=== PATIENT | male | born 1975 | race Caucasian/White ===

== ENCOUNTER 2020-10-22 11:22 | Outpatient (CLI) | payer OTHER, SELFPAY ==
[2020-10-22 11:39] LABS: SARS-CoV-2 RNA PCR Positive (Negative)
== END 2020-10-22 11:23 | disposition home or self-care (01) ==
DX: U07.1 COVID-19 (principal)
CPT/HCPCS: C9803; U0003; U0005

== ENCOUNTER 2020-10-27 11:57 | Outpatient (CLI) | payer OTHER, SELFPAY ==
[2020-10-27 12:11] LABS: SARS-CoV-2 Ag Negative (Negative)
== END 2020-10-27 11:58 | disposition home or self-care (01) ==
LOC: CHSLAB 11:59
DX: Z20.822 Contact with and (suspected) exposure to COVID-19 (principal)
CPT/HCPCS: 87426; C9803

== ENCOUNTER 2021-03-10 14:53 | Emergency (ER) | payer SELFPAY ==
--- NOTE | ~2021-03-10 | CT_ITS ---
EXAMINATION: CT abdomen pelvis wo con DATE: 03/10/2021 16:58 INDICATION: Right flank pain. Hematuria. TECHNIQUE: Computed tomography (CT) of the abdomen and pelvis was performed without intravenous contr ast. Automated exposure control and iterative reconstruction technique were employed. The dose-length product was 638.38 mGy-cm. COMPARISON: None. FINDINGS: The visualized portions of the lung bases demonstrate mild atelectasis. No pleural effusion . The heart size is normal. No pericardial effusion. The liver, gallbladder, spleen, pancreas, and ad renal glands are normal. There are two 1-2 mm stones in right kidney. There is a 3 mm stone in proxim al right ureter. There is mild right hydroureter. A 5 mm calcification in left kidney may be parenchy mal. There is a 3 mm stone in left kidney. There are bilateral inguinal hernias containing fat. There are no dilated loops of bowel. The appendix is normal. There are no pathologically enlarged lymph no lefty. There is no free intraperitoneal fluid. There are chronic bilateral L5 pars defects. There is 7 mm anterolisthesis of L5 on S1. There is mild thoracolumbar spondylosis. IMPRESSION: 1. 3 mm stone in proximal right ureter with mild right hydroureter. 2. Bilateral nonobstructing kidney stones. Reviewed, dictated and finalized at location A.
[2021-03-10 15:00] VITALS: BP 151/94; PULSE 85; RESP 22; O2SAT 97
[2021-03-10] MEDS: ONDANSETRON INJ 4 MG/2 ML VIAL IV PUSH (15:10)
[2021-03-10] MEDS: SODIUM CHLORIDE 0.9% IV 1,000 ML 999 ML IV CONT (15:10)
[2021-03-10] MEDS: HYDROmorphone HCL INJ (*CRX) 2 MG/ML VIAL 1 MG IV PUSH (15:15)
--- NOTE | 2021-03-10 15:22 | ED.ABDPAIN ---
HPI - Abdominal Pain General Chief Complaint: Back Pain/Injury Stated Complaint: appendasitis Time Seen by Provider: 03/10/21 14:56 Source: patient Mode of arrival: ambulatory Limitations: no limitations History of Present Illness HPI narrative: 46-year-old man with a history of hypertension comes in today complaining of right flank and back pain that started suddenly approximately an hour or 2 prior to arrival. States the pain waxed and waned and was associated with nausea and sweating. He denies vomiting, diarrhea, fever, chest pain, dysuria, hematuria or recent injury. Is no personal or family history of urolithiasis he has had no recent cough or cold symptoms MD elicited complaint: flank pain Pertinent past history: none Onset (ago): hour(s) (1) Pain Consistency: colicky Location: R flank Severity: severe Quality: cramping Radiation: none Migration to: no migration Exacerbating factors: nothing Relieving factors: nothing Associated symptoms: nausea Related Data Home Medications Medication Instructions Recorded Confirmed losartan 25 mg PO DAILY 03/10/21 03/10/21 Allergies Allergy/AdvReac Type Severity Reaction Status Date / Time No Known Allergies Allergy Verified 03/10/21 15:04 Review of Systems Review of Systems: All systems reviewed & are unremarkable except as noted in HPI and below Constitutional: Constitutional: Denies chills and Denies fever(s) ENT: Denies nasal congestion and Denies sore throat Cardiovascular: Cardiovascular: Denies chest pain and Denies radiating jaw, neck or arm pain Respiratory: Respiratory: Denies cough and Denies dyspnea Gastrointestinal: Gastrointestinal: Reports abdominal pain ( flank right), Denies diarrhea, Reports nausea and Denies vomiting Genitourinary: Genitourinary: Denies hematuria, Denies dysuria and Denies urinary frequency Musculoskeletal: Musculoskeletal: Denies back pain, Denies arthralgias and Denies joint swelling Integumentary/Breasts: Skin/Breast: Denies pruritus, Denies erythema and Denies rash Neurologic: Denies vertigo, Denies dizziness and Denies syncope Hematologic/Lymphatic: Hematologic/Lymphatic: Denies easy bleeding and Denies easy bruising Allergic/Immunologic: Allergic/Immunologic: Denies lip swelling and Denies throat swelling PMF Past Medical History Medical History (Updated 03/10/21 @ 17:28 by Javier Anderson MD) Hypertension Social History Social History (Updated 03/10/21 @ 16:10 by Javier Anderson MD) Smoking status: Never smoker Alcohol intake: never Substance use: never Living arrangements: with family Exam Const: General: healthy appearing and alert Orientation/consciousness: patient oriented x3 Limitations: no limitations Other: moderate acute distress. HENMT: Head: normal to inspection Mouth: Yes moist mucous membranes Throat: posterior oropharynx normal Eyes: Conjunctivae: conjunctivae normal Pupils: Equal, round and reactive pupils present EOM: EOMs intact bilaterally Resp: Effort & Inspection: normal respiratory effort and not labored Auscultation: clear to auscultation bilaterally, no rales, no rhonchi and no wheezes Cardio: Rate: regular rate Rhythm: regular rhythm Heart sounds: no murmurs GI: GI Palp: Yes Soft to palpation, No Tenderness to palpation present (GI), No Guarding due to palpation present (GI) and No Rigid due to palpation Skin: General skin exam: normal color, no jaundice and no pallor Rashes: no rashes Neuro: General: patient oriented x3, moves all extremities, no focal motor deficits and CN's II-XI intact bilaterally Speech: normal speech Gait exam (Neuro): Normal gait present Extrem: General: normal to inspection and no clubbing, cyanosis or edema Psych: Appearance: grossly normal and well kempt Mental Status: mental status grossly normal Affect: normal affect Attitude: cooperative Course Vital Signs Vital signs: Vital Signs Pulse Rate 85 03/10/
[2021-03-10 15:36] VITALS: BP 137/85
[2021-03-10 15:50] LABS: Basophils Absolute Auto 0.06 K/mm3 (0.00-0.10); Basophils Percent Auto 0.9 % (0.0-1.0); Eosinophils Absolute Auto 0.09 K/mm3 (0.02-0.50); Eosinophils Percent Auto 1.3 % (1.0-6.0); Hematocrit 41.8 % (40.0-54.0); Hemoglobin 14.2 g/dL (14.0-18.0); Immature Granulocyte Absolute 0.03 K/mm3 (0.00-0.00); Immature Granulocyte Percent A 0.4 % (0.0-0.0); Lymphocytes Absolute Auto 1.33 K/mm3 (1.10-4.50); Lymphocytes Percent Auto 19.9 % (18.0-42.0); Mean Corpuscular Hemoglobin 31.2 pg (27.0-31.0); Mean Corpuscular Volume 91.9 fL (78.0-102.0); Mean Platelet Volume 9.1 fl (8.7-11.0); Monocytes Absolute Auto 0.57 K/mm3 (0.10-0.90); Monocytes Percent Auto 8.5 % (2.0-11.0); Neutrophils Absolute Auto 4.6 K/mm3 (1.7-7.2); Platelet Count Result 248 K/mm3 (150-420); Red Blood Count 4.55 M/mm3 (4.70-6.10); Red Cell Distribution Width 12.4 % (11.6-14.4); White Blood Count 6.7 K/mm3 (4.8-10.8)
[2021-03-10 16:05] LABS: Alanine Aminotransferase 25 U/L (16-63); Albumin Level 3.4 g/dL (3.4-5.0); Alkaline Phosphatase 71 U/L (46-116); Anion Gap 8 mmol/L (8-16); Aspartate Amino Transferase 14 U/L (15-37); Bilirubin,Total 0.6 mg/dL (0.00-1.00); Blood Urea Nitrogen 16 mg/dL (7-18); Calcium 8.5 mg/dL (8.5-10.1); Carbon Dioxide 29 mmol/L (21-32); Chloride 108 mmol/L (98-108); Estimated Glomerular Filt Rate > 60; Glucose 100 mg/dL (70-99); Osmolality Calculated 301 mOsm/kg (285-295); Potassium 3.8 mmol/L (3.5-5.1); Sodium 145 mmol/L (136-145); Total Protein 6.3 g/dL (6.4-8.2)
[2021-03-10 16:08] LABS: SARS-CoV-2 Ag Negative (Negative)
[2021-03-10 16:13] LABS: Add Urine Microscopic? YES; Appearance Urine Clear (Clear); Bilirubin Urine Negative (Negative); Blood Urine 3+ (Negative); Color Urine Yellow (Yellow); Glucose Urine UA Negative (Negative); Ketones Urine Trace (Negative); Leukocyte Esterase Ur Negative (Negative); Nitrate Urine Negative (Negative); Protein Urine Trace (Negative); Specific Grav Ur >= 1.030 (1.010-1.020); Urobilinogen Urine 0.2 mg/dL (0.2-1.0)
[2021-03-10 16:21] LABS: Bacteria Urine Trace /hpf; Mucus Urine Few /lpf; RBC Urine >75 /hpf (0-2); Squamous Epithelial Cell Urine None seen /hpf (Few); WBC Urine 0-3 /hpf (0-3)
[2021-03-10] MEDS: KETOROLAC 30 MG/ML VIAL (*BKC) (17:33)
[2021-03-10 17:35] VITALS: BP 136/89
== END 2021-03-10 17:45 | disposition home or self-care (01) ==
PROVIDERS: Emergency Provider Emergency Medicine
DX: N20.1 Calculus of ureter (principal); Z20.822 Contact with and (suspected) exposure to COVID-19
CPT/HCPCS: 36415; 74176; 80053; 81001; 85025; 87426; 96361; 96374; 96375; 99283; 99284; C9803; J1170; J1885; J2405; J7030

== ENCOUNTER 2023-09-01 00:26 | Emergency (ER) | payer SELFPAY ==
--- NOTE | ~2023-09-01 | CT_ITS ---
Non-contrast CT scan of the Abdomen and Pelvis Clinical indication: Left flank pain Technique: 2.5 mm axial scans were obtained through the abdomen and pelvis without intravenous or or al contrast. Dose reduction technique was used on this scan by utilizing automated exposure control a nd iterative reconstruction technique. The dose-length product (DLP) was 797.26 mGy-cm. COMPARISON: 521 Findings: Images through the lung bases reveal no abnormalities. There is a 6 mm stone at the left UVJ, with mild left hydroureteronephrosis. Additional bilateral non obstructing renal stones measuring up to approximately 5 mm in greatest diameter. No right ureteral s tone or right hydronephrosis. The liver, spleen, pancreas, gallbladder, and adrenals appear normal. There is no aortic aneurysm. There is no evidence of bowel obstruction. Images through the pelvis were performed. There is no evidence of ascites or lymphadenopathy. Urinary bladder otherwise unremarkable. No pelvic mass seen. There are small bilateral fat-containing inguin al hernias. Bilateral L5 pars interarticularis defects are present, without subluxation. Impression: 6 mm left UVJ stone with mild left hydroureteronephrosis. Additional bilateral nonobstructing renal calculi. Small bilateral fat-containing hernias. Reviewed, dictated and finalized at location . R KILN Impression: 6 mm left UVJ stone with mild left hydroureteronephrosis. Additional bilateral nonobstructing renal calculi. Small bilateral fat-containing hernias.
[2023-09-01 00:28] VITALS: BP 179/147
[2023-09-01 00:29] VITALS: BP 175/109; PULSE 85; RESP 18; TEMP 36.3; O2SAT 98
--- NOTE | 2023-09-01 00:37 | ED.GENADULT ---
HPI - General Adult General Chief complaint: Urogenital-Male Stated complaint: abdominal pain Time Seen by Provider: 09/01/23 00:32 History of Present Illness HPI narrative: Chip is a 48M with a PMH of ureterolithiasis, and hypertension that presented to the ED with left sided flank pain that began 4 hours ago and has become very severe. It feels like a previous kidney stone. He is also having nausea and vomiting. No fevers, chest pain or dyspnea. Related Data Home Medications Medication Instructions Recorded Confirmed losartan 25 mg tablet 25 mg PO DAILY 03/10/21 09/01/23 hydrochlorothiazide 12.5 mg capsule 12.5 mg PO DAILY 09/01/23 09/01/23 Allergies Allergy/AdvReac Type Severity Reaction Status Date / Time No Known Allergies Allergy Verified 03/10/21 15:04 Review of Systems Review of Systems: All systems reviewed & are unremarkable except as noted in HPI and below PMFSH Past Medical History Medical History Hypertension Social History Social History Smoking status: Never smoker Alcohol intake: never Substance use: never Living arrangements: with family Exam Const: General: cooperative, healthy appearing, comfortable, no acute distress, well developed, alert, awake and Physically active Orientation/consciousness: oriented to person, oriented to place and oriented to time Other: Chip was noticeably uncomfortable pacing around the room. HENMT: Head: normal to inspection, normocephalic and atraumatic Ears: hearing grossly normal bilaterally and external ears normal Face/Nose/Sinus: Normal external nose present Eyes: General: appearance normal, both eyes and all related structures Periorbital: periorbital findings normal Sclera: sclerae normal Pupils: Equal, round and reactive pupils present Neck: Neck: normal visual inspection Chest: Chest palpation & inspection: normal inspection of the chest Resp: Effort & Inspection: normal respiratory effort, able to speak in complete sentences and no respiratory distress Cardio: Jugular venous distension: no JVD Skin: General skin exam: normal color and no rashes or lesions noted Neuro: General: oriented to person, oriented to place and oriented to time Cranial nerves: Yes Equal, round and reactive pupils present Extrem: General: normal to inspection Course Course Emergency Course: Ordered labs, CT and UA. Given toradol, morphine and zofran for the pain and nausea. Labs showed and HILARIA with a cr of 1.7, up from 1.2. UA showed blood but no signs of infection. CT showed left hydrourteronephrosis with obstructing mm calculus and left distal ureter, no obstructing right renal calculi, no bowel obstruction, inflammation, normal appendix as well as fat-containing bilateral inguinal hernias Contacted [facility] for transfer around 0230. They called back and reported that he will be accepted but they are very backed up currently. I spoke with Dr. Jameson who accepted the transfer at 0435 He chose to be transferred by private vehicle as he no longer has insurance and is concerned about cost. Because of this, his IV was pulled and fluids were stopped. Vital Signs Vital signs: Vital Signs Blood Pressure 179/147 H 09/01/23 00:28 Temperature 97.5 F L 09/01/23 01:45 Pulse Rate 78 09/01/23 03:05 Respiratory Rate 18 09/01/23 03:05 Blood Pressure 142/92 H 09/01/23 03:05 Pulse Oximetry 96 09/01/23 03:05 Oxygen Delivery Room Air 09/01/23 03:05 Medical Decision Making Vital Signs Vital Signs: Vital Signs Blood Pressure 179/147 H 09/01/23 00:28 Temperature 97.5 F L 09/01/23 01:45 Pulse Rate 78 09/01/23 03:05 Respiratory Rate 18 09/01/23 03:05 Blood Pressure 142/92 H 09/01/23 03:05 Pulse Oximetry 96 09/01/23 03:05 Oxygen Delivery Room Air 09/01/23 03:05 Lab Data 09/01
[2023-09-01] MEDS: MORPHINE SULFATE (*CRX) 4 MG/ML INJ IV PUSH (00:38)
[2023-09-01] MEDS: SODIUM CHLORIDE 0.9% IV 1,000 ML 999 ML IV CONT (00:38)
[2023-09-01] MEDS: KETOROLAC 15 MG/ML VIAL (*BKC) IV PUSH (00:39)
[2023-09-01] MEDS: ONDANSETRON INJ 4 MG/2 ML VIAL IV PUSH (00:43)
--- NOTE | 2023-09-01 00:45 | PC.NURSE ---
patient medicated per order, see SEP. taken to imaging via wheelchair by alexey duarte. spouse at bedside.
[2023-09-01 01:04] LABS: Basophils Absolute Auto 0.09 K/mm3 (0.00-0.10); Basophils Percent Auto 1.1 % (0.0-1.0); Eosinophils Absolute Auto 0.14 K/mm3 (0.02-0.50); Eosinophils Percent Auto 1.7 % (1.0-6.0); Hematocrit 43.5 % (40.0-54.0); Hemoglobin 14.5 g/dL (14.0-18.0); Immature Granulocyte Absolute 0.03 K/mm3 (0.00-0.00); Immature Granulocyte Percent A 0.4 % (0.0-0.0); Lymphocytes Absolute Auto 2.23 K/mm3 (1.10-4.50); Lymphocytes Percent Auto 26.7 % (18.0-42.0); Mean Corpuscular HGB Conc 33.3 g/dL (32.0-36.0); Mean Corpuscular Hemoglobin 30.3 pg (27.0-31.0); Mean Platelet Volume 9.1 fl (8.7-11.0); Monocytes Absolute Auto 0.86 K/mm3 (0.10-0.90); Monocytes Percent Auto 10.3 % (2.0-11.0); Neutrophils Percent Auto 59.8 % (50.0-70.0); Platelet Count Result 316 K/mm3 (150-420); Red Blood Count 4.78 M/mm3 (4.70-6.10); Red Cell Distribution Width 12.5 % (11.6-14.4); White Blood Count 8.4 K/mm3 (4.8-10.8)
[2023-09-01 01:05] LABS: Appearance Urine Clear (Clear); Bilirubin Urine Negative (Negative); Blood Urine 3+ (Negative); Color Urine Yellow (Yellow); Glucose Urine UA Negative (Negative); Ketones Urine Trace (Negative); Leukocyte Esterase Ur Negative LEU/UL (Negative); Nitrate Urine Negative (Negative); Protein Urine Negative (Negative); Specific Grav Ur 1.015 (1.010-1.020); Urobilinogen Urine 0.2 mg/dL (0.2-1.0); pH Urine 7.5 (5.0-8.0)
[2023-09-01 01:12] LABS: Add Urine Microscopic? YES; Bacteria Urine Trace /hpf; RBC Urine >75 /hpf (0-2); Squamous Epithelial Cell Urine None seen /hpf (Few); WBC Urine 0-3 /hpf (0-3)
[2023-09-01 01:14] VITALS: BP 151/104; PULSE 89; RESP 18; O2SAT 95
[2023-09-01 01:23] LABS: Alanine Aminotransferase 32 U/L (16-63); Albumin Level 3.7 g/dL (3.4-5.0); Alkaline Phosphatase 73 U/L (46-116); Anion Gap 9 mmol/L (8-16); Aspartate Amino Transferase 18 U/L (15-37); Bilirubin,Total 0.4 mg/dL (0.00-1.00); Blood Urea Nitrogen 19 mg/dL (7-18); Calcium 8.3 mg/dL (8.5-10.1); Carbon Dioxide 29 mmol/L (21-32); Chloride 102 mmol/L (98-108); Estimated CRCL calculation 64 ml/min; Estimated Glomerular Filt Rate 43; Glucose 145 mg/dL (70-99); Lipase 38 U/L (16-77); Osmolality Calculated 295 mOsm/kg (285-295); Potassium 3.5 mmol/L (3.5-5.1); Sodium 140 mmol/L (136-145); Total Protein 6.8 g/dL (6.4-8.2)
--- NOTE | 2023-09-01 01:42 | PC.NURSE ---
Pt resting c at bedside, pt states his pain is much less at this time. CT report back and ERP Dr Benton in to speak c pt about POC and need for transfer.
[2023-09-01 01:45] VITALS: BP 145/94; PULSE 85; RESP 18; TEMP 36.4; O2SAT 95
[2023-09-01 03:05] VITALS: BP 142/92; PULSE 78; RESP 18; O2SAT 96
--- NOTE | 2023-09-01 03:06 | PC.NURSE ---
Pt urinated and urine was strained, no noted stone c straining. Pt remains pain free at this time and only c/o slight discomfort in lower groin area c urination. Pt given blanket and updated on POC and wait situation until Dr Mcdaniel is able to call to speak c ERP. Pt understanding, VSS, lights dimmed. Call soto at side.
--- NOTE | 2023-09-01 04:43 | PC.NURSE ---
Pt sleeping comfortably, awakens easily, POC updated on transfer and call back from [facility] received c bed assignment..
--- NOTE | 2023-09-01 04:57 | PC.NURSE ---
Pt not wanting transfer via EMS due to funding and bills. Pt wanting his to drive him to [place]. Call placed to house supv. and discussed about PV transport to [place] via . Danya stated to pull pts IV and have him report to admitting when he arrives.
[2023-09-01 05:09] VITALS: BP 144/94; PULSE 75; RESP 18; TEMP 36.6; O2SAT 98
== END 2023-09-01 05:09 | disposition short-term general hospital (02) ==
PROVIDERS: Emergency Provider Family Medicine
DX: N20.1 Calculus of ureter (principal); I10 Essential (primary) hypertension; Z79.899 Other long term (current) drug therapy
CPT/HCPCS: 36415; 74176; 80053; 81001; 83690; 85025; 96361; 96374; 96375; 99285; J1885; J2270; J2405; J7030

== ENCOUNTER 2023-09-01 09:36 | Observation (INO) | payer SELFPAY ==
--- NOTE | ~2023-09-01 | XR_ITS ---
EXAMINATION: XR retrograde pyelo w/stent LT DATE: 09/01/2023 12:34 INDICATION: Left ureteral stone. TECHNIQUE: 6 intraoperative fluoroscopic views of the abdomen and pelvis were obtained. I was not pre sent. Fluoroscopy time was 25 seconds. COMPARISON: CT abdomen and pelvis 09/01/2023 FINDINGS: The left-sided retrograde pyelograms demonstrates mild hydronephrosis. The final images dem onstrate a left internal ureteral stent in expected position. IMPRESSION: 1. Mild left hydronephrosis. 2. Left internal ureteral stent in expected position. Reviewed, dictated and finalized at location A. ONARY NURSE PRACTITIONER
--- NOTE | 2023-09-01 05:55 | ADMGEN ---
This patient, Chip Lopez, was admitted to Medical Room 345-01. Patient/family oriented to hospital policies and general routines including ID bracelet, bed and alarms, visiting hours, pain management, procedures, bathroom and other care routines, personal items, smoking policy, room service/diet, and visiting hours. Information on how to activate the Rapid Response Team has been discussed. Patient/Family are encouraged to report perceived risks to care and to ask questions if they do not understand what they are told or what they should do.
[2023-09-01 06:22] VITALS: BP 138/72; PULSE 88; RESP 18; TEMP 37.1; O2SAT 98
--- NOTE | 2023-09-01 09:33 | WPDURCON ---
Assessment and Plan Assessment and plan (1) Ureterolithiasis: Code(s): N20.1 - Calculus of ureter Status: Acute Assessment and Plan: 6 mm left UVJ stone. Plan for cystoscopy, left ureteroscopy with laser lithotripsy, possible stone extraction, and left ureteral stent placement this afternoon with Dr. Ocasio. Discussed procedure with patient and he agrees to proceed. Understands temporary nature of stent and need for appropriate follow up. Continue NPO diet. (2) Hydronephrosis of left kidney: Code(s): N13.30 - Unspecified hydronephrosis Status: Acute Assessment and Plan: Secondary to above (3) Acute kidney injury: Code(s): N17.9 - Acute kidney failure, unspecified Status: Acute Assessment and Plan: Creatinine up to 1.7. Baseline 1.2. Continue to monitor serum creatinine Urology Consult Note HPI Date Seen: 09/01/23 Requesting Physician: Conchis Mcdaniel DO Primary Care Provider: BENCH PRESS OPERATOR PHYSICIAN Consult Narrative Narrative: Chip Lopez is a 48 year old male with a history of one prior kidney stone that passed spontaneously and hypertension who is being seen in consultation for evaluation of left ureteral stone. He presented to [facility] early this morning after he had sudden onset of left flank pain that radiated to the left groin. He had associated nausea and vomiting. Did not have dysuria, hematuria, fevers, chills. On arrival, a CT of his abdomen/pelvis demonstrated a 6 mm left UVJ stone with mild left hydronephrosis and bilateral nonobstructing renal stones. His creatinine was elevated at 1.7. WBC within normal limits. UA with blood but no concerns for infection. He was transferred to [facility] for urologic evaluation. At the time of evaluation, he is feeling improved. States pain is better controlled with analgesics and nausea/vomiting has resolved. He is afebrile and his vital signs are stable. He has been straining his urine and has not passed the stone yet. Review of Systems Review of Systems: All systems reviewed & are unremarkable except as noted in HPI and below [facility] Past Medical History Medical History Hypertension Family History Family History (Updated 09/01/23 @ 06:40 by Aniya A. Hernandez, RN) Mother Heart failure Diabetes mellitus Afib Grandparent Cerebrovascular accident Social History Social History Smoking status: Never smoker Alcohol intake: never Substance use: never Substance use type: does not use Do You Feel Safe in your Home?: Yes Lack of Transportation: No Lack of Food: Never True Current Housing: I Have Housing Concerned About Future Housing: No Difficulty Paying Gas/Electric Bills: No Difficulty Paying for Meds: No Currently Unemployed: No Education: Associate Degree Difficulty w/ Childcare or Family Care: No Living arrangements: with family Spiritual care concerns: No Meds Home Medications and Allergies Home Medications Medication Instructions Recorded Confirmed Type losartan 25 mg tablet 25 mg PO DAILY 03/10/21 09/01/23 History hydrochlorothiazide 12.5 mg capsule 12.5 mg PO DAILY 09/01/23 09/01/23 History Allergies Allergy/AdvReac Type Severity Reaction Status Date / Time No Known Allergies Allergy Verified 03/10/21 15:04 Vital Signs Vital Signs - 24 hr 09/01/23 06:52 09/01/23 06:22 09/01/23 09:11 Temperature 98.7 F Pulse Rate 88 Respiratory Rate 18 Blood Pressure 138/72 Pulse Oximetry 98 Oxygen Delivery Room Air Room Air Exam Narrative: General: Awake, alert, comfortable, no acute distress HEENT: Normocephalic, atraumatic, sclerae anicteric Respiratory: Normal respiratory effort, no accessory muscle use Abdomen: Nondistended, soft, nontender Skin: Normal coloration, warm and dry Neurologic: No f
[2023-09-01 09:52] LABS: Hemoglobin 13.9 g/dL (14.0-18.0); Mean Corpuscular HGB Conc 31.6 g/dl (32-36); Mean Corpuscular Hemoglobin 29.6 pg (26-34); Mean Corpuscular Volume 93.6 fl (80-100); Mean Platelet Volume 9.3 fl (7.4-10.4); Platelet Count Result 286 k/mm3 (150-375); White Blood Count 7.7 K/mm3 (4.5-10.0)
[2023-09-01 10:05] LABS: Alanine Aminotransferase 26 U/L (6-50); Albumin Level 3.7 g/dL (3.5-5.1); Alkaline Phosphatase 69 U/L (38-126); Anion Gap 3 mmol/L (8-16); Aspartate Amino Transferase 23 U/L (17-59); Bilirubin,Total 0.7 mg/dL (0.2-1.3); Blood Urea Nitrogen 18 mg/dL (9-20); Calcium 8.5 mg/dL (8.4-10.2); Carbon Dioxide 28 mmol/L (22-30); Chloride 107 mmol/L (98-107); Estimated Glomerular Filt Rate > 60; Glucose 101 mg/dL (65-110); Potassium 3.9 mmol/L (3.4-5.0); Sodium 138 mmol/L (137-145)
[2023-09-01] MEDS: SODIUM CHLORIDE 0.9% IV 1,000 ML 100 ML IV CONT (10:22)
[2023-09-01] MEDS: PANTOPRAZOLE SODIUM IV 40 MG VIAL IV PUSH (10:22)
--- NOTE | 2023-09-01 11:12 | WPDHPUPDATE1 ---
History and Physical Update Update Date/Time: 09/01/23 11:12 History and Physical has been reviewed, including an updated exam of the patient. There are NO changes in the patient's condition. Risks, benefits, and alternatives have been discussed and questions answered. Patient agrees to proceed with procedure. Proceed with cystoscopy, left retrograde pyelogram, left ureteroscopy with stone extraction, possible laser, stent placement
[2023-09-01 11:45] VITALS: BMI 38.7
--- NOTE | 2023-09-01 11:50 | WPDANESEPPF ---
Anes - Initial Pre Proc Eval Procedure: Operation Date: 09/01/23 13:00 Proposed Procedures p Cystoscopy, Left Ureteroscopy, Possible Left Retrograde Pyelogram, Possible Left Stone Extraction, Possible Left Stent Placement, Possible Holmium Laser - Juan Ocasio MD Date/Time: 09/01/23 11:50 Surgeon: Conchis Mcdaniel DO Pre Op Diagnosis: Obstructing Kidney Stone Patient Data Age: 48 Gender: M Height: 1.78 m Weight: 122.47 kg Last Vital Signs Temp 37.1 C 09/01/23 06:22 Pulse 88 09/01/23 06:22 Resp 18 09/01/23 06:22 BP 138/72 09/01/23 06:22 Pulse Ox 98 09/01/23 06:22 O2 Del Method Room Air 09/01/23 09:11 Allergies Allergy/AdvReac Type Severity Reaction Status Date / Time No Known Allergies Allergy Verified 09/01/23 11:42 Home Medications Medication Instructions Recorded Confirmed Type losartan 25 mg tablet 25 mg PO DAILY 03/10/21 09/01/23 History hydrochlorothiazide 12.5 mg capsule 12.5 mg PO DAILY 09/01/23 09/01/23 History Laboratory Tests 09/01/23 09:46 WBC 7.7 K/mm3 (4.5-10.0) RBC 4.70 M/mm3 (4.6-6.20) Hgb 13.9 L g/dL (14.0-18.0) Hct 44.0 % (42.0-52.0) MCV 93.6 fl (80-100) MCH 29.6 pg (26-34) MCHC 31.6 L g/dl (32-36) RDW 13.0 % (11.5-14.5) Plt Count 286 k/mm3 (150-375) MPV 9.3 fl (7.4-10.4) Sodium 138 mmol/L (137-145) Potassium 3.9 mmol/L (3.4-5.0) Chloride 107 mmol/L (98-107) Carbon Dioxide 28 mmol/L (22-30) Anion Gap 3 L mmol/L (8-16) BUN 18 mg/dL (9-20) Creatinine 1.10 mg/dL (0.7-1.3) Estim Creat Clear Calc Not Reportable Estimated GFR > 60 (59 - ) Glucose 101 mg/dL (65-110) Calcium 8.5 mg/dL (8.4-10.2) Total Bilirubin 0.7 mg/dL (0.2-1.3) AST 23 U/L (17-59) ALT 26 U/L (6-50) Alkaline Phosphatase 69 U/L (38-126) Total Protein 6.0 L g/dL (6.3-8.2) Albumin 3.7 g/dL (3.5-5.1) Patient hx anesthesia problems: none Family hx anesthesia problems: none Results Review: All pre-operative results and documents have been reviewed as part of the pre-operative evaluation. PMFSH Past Medical History Medical History Hypertension Family History Family History Mother Heart failure Diabetes mellitus Afib Grandparent Cerebrovascular accident Social History Social History Smoking status: Never smoker Alcohol intake: never Substance use: never Substance use type: does not use Do You Feel Safe in your Home?: Yes Lack of Transportation: No Lack of Food: Never True Current Housing: I Have Housing Concerned About Future Housing: No Difficulty Paying Gas/Electric Bills: No Difficulty Paying for Meds: No Currently Unemployed: No Education: Associate Degree Difficulty w/ Childcare or Family Care: No Living arrangements: with family Spiritual care concerns: No Anes - Eval Final PreProcedure Day of Procedure 09/01/23 11:50 Patient weight: obese Heart: regular rate and rhythm Lungs: clear to auscultation Airway: Mallampati scale class II Neurological: alert and oriented Last oral intake: >/= 8 hours ASA classification: II Emergent: no Anesthetic plan: proceed Anesthesia type and monitoring: general LMA and standard monitoring Results Review: All pre-operative results and documents have been reviewed as part of the pre-operative evaluation. Informed Consent: The patient's anesthetic plan and its attendant risks and benefits were discussed with the patient/family/POA. Questions were solicited and answers provided to the satisfaction of the patient/family/POA.
[2023-09-01] MEDS: ceFAZolin 2 GM/D5W 50 ML 2 GM/50 ML BAG IVPB (12:04)
[2023-09-01] MEDS: ceFAZolin 1 GM/NS 50 ML 1 GM/50 ML BAG IVPB (12:04)
--- NOTE | 2023-09-01 12:26 | PCCCNOTE ---
On 09/01/23, the student, [Eula Garcia ], provided care and completed [facility] documentation on this patient. I have reviewed the student's documentation and agree with the findings.
--- NOTE | 2023-09-01 12:31 | P.OP_ITS ---
Procedure Note - Detailed Date of Procedure 09/01/23 Pre-op Diagnosis Left ureteral calculus Post-op Diagnosis Same Procedure Performed Cystoscopy, left retrograde pyelogram, left ureteroscopy with stone extraction, left ureteral stent placement 4.8 Micronesian contour Surgeon Juan Ocasio MD Anesthesia General Description of Procedure Patient was taken to the operative suite correctly identified. Once anesthesia was obtained was placed in dorsal lithotomy position and prepped and draped usual sterile fashion. Twenty-two Micronesian scope was inserted the bladder. There were no tumors noted. The left ureteral orifice was cannulated with a guidewire. It was dilated with 8/10 dilator. Rigid ureteral scope was then inserted. The stone was visualized. Using escape basket we were able to retrieve it in 1 piece. Pyelogram was then performed to confirm placement of the stent. 4.8 Micronesian contour stent was placed with the proximal end coiled in the left renal pelvis and the distal in the bladder. 2% viscous lidocaine was inserted into the urethra patient is taken recovery stable condition. He is to follow-up in a week's time for stent removal. This completes dictation. Please send a copy of op note to my office. Estimated Blood Loss 0 Urine Output 350 Drains Yes Packing No Pathology Yes Complications No immediate complications Condition Stable Disposition PACU
[2023-09-01 12:37] VITALS: BP 134/95; PULSE 82; RESP 13; TEMP 36.4; O2SAT 100
[2023-09-01] MEDS: LACTATED RINGERS 1,000 ML 30 ML IV CONT (12:37)
[2023-09-01 12:50] VITALS: BP 140/95; PULSE 70; RESP 16; O2SAT 100
[2023-09-01 13:05] VITALS: BP 150/103; PULSE 70; RESP 16; O2SAT 97
[2023-09-01 13:20] VITALS: BP 138/96; PULSE 68; RESP 16; O2SAT 97
[2023-09-01 13:35] VITALS: BP 136/88; PULSE 62; RESP 16; O2SAT 97
--- NOTE | 2023-09-01 14:34 | PM.SD2 ---
Same Day Admit/Disch: HPI History of Present Illness Chief complaint: Obstructing Kidney Stone Narrative: Chip Lopez is a 48 year old male who presented to [facility] with complaints of severe sudden onset of left flank pain that was radiating down his groin. Patient reports he does have history kidney stones that have spontaneously passed on their own her and hypertension. Patient had denied dysuria, hematuria, fevers, chills however did have complaints of nausea and vomiting x1. Initial labs in the emergency department were unremarkable UA did show blood in urine with HILARIA creatinine of 1.7. CT abdomen was completed which showed 6 mm left UV J stone with mild left hydronephrosis and bilateral nonobstructing renal stones. Patient was then transferred to [facility] for further evaluation and treatment by our Urology group. It to the medical-surgical unit and scheduled for a cystoscopy, left retrograde pyelogram with possible stone extraction. The patient was continued on IV fluids, pain control and to strain all urine with passing of stone noted, patient remained afebrile with normal WBC UA showed no leukocytes or nitrates the follow-up with patient following for seizure only complaint was mildly burning with urination. Patient alert oriented her insert all questions appropriately no acute distress. Patient was cleared to discharge home from Urology standpoint with a follow-up in 1 week for removal of stent. Patient ambulatory and discharged home with with prescription Bactrim and tramadol only to follow-up with urology next week. Patient will need to seek medical attention if symptoms return, persist or worsen or symptoms of infection or obstruction PMFSH Past Medical History Medical History Hypertension Family History Family History Mother Heart failure Diabetes mellitus Afib Grandparent Cerebrovascular accident Social History Social History Smoking status: Never smoker Alcohol intake: never Substance use: never Substance use type: does not use Do You Feel Safe in your Home?: Yes Lack of Transportation: No Lack of Food: Never True Current Housing: I Have Housing Concerned About Future Housing: No Difficulty Paying Gas/Electric Bills: No Difficulty Paying for Meds: No Currently Unemployed: No Education: Associate Degree Difficulty w/ Childcare or Family Care: No Living arrangements: with family Spiritual care concerns: No Same Day Admit/Disch: Med Pre-admit Medications Home Medications Medication Instructions Recorded Confirmed Type losartan 25 mg tablet 25 mg PO DAILY 03/10/21 09/01/23 History hydrochlorothiazide 12.5 mg capsule 12.5 mg PO DAILY 09/01/23 09/01/23 History sulfamethoxazole 800 1 tablet PO Q12H #6 tabs 09/01/23 Rx mg-trimethoprim 160 mg tablet (Bactrim DS) tramadol 50 mg tablet 50 mg PO Q6H PRN pain #20 tabs 09/01/23 Rx Review of Systems Review of Systems All systems reviewed & are unremarkable except as noted in HPI and below Exam Narrative: Physical Exam: GENERAL: Alert and oriented x 3. No acute distress. Well-nourished. EYES: EOMI. No scleral icterus. PERRLA. HEENT: Moist mucous membranes. No cervical lymphadenopathy. LUNGS: Clear to auscultation bilaterally. No accessory muscle use. CARDIOVASCULAR: Regular rate and rhythm. No murmur. No JVD. S1-S2 ABDOMEN: Soft, mild tenderness and non-distended. No palpable masses. EXTREMITIES: No edema. Non-tender SKIN: No rashes or lesions. Skin warm, dry. NEUROLOGIC: No focal neurological deficits. CN II-XII grossly intact PSYCHIATRIC: Appropriate mood and affect. Good judgement and insight. No visual or auditory hallucinations. No suicidal or homicidal ideation. : Other: Left CVA tender
== END 2023-09-01 15:00 | disposition home or self-care (01) ==
PROVIDERS: Nurse Practitioner Family; Urology; Admitting Provider Internal Medicine; PCP Family Medicine; Visit Provider Internal Medicine
PROC: (CPT 52352; principal; 2023-09-01 13:00)
DX: N13.2 Hydronephrosis with renal and ureteral calculous obstruction (principal); N17.9 Acute kidney failure, unspecified; I10 Essential (primary) hypertension; Z82.49 Family history of ischemic heart disease and other diseases of the circulatory system; E66.9 Obesity, unspecified; Z68.38 Body mass index [BMI] 38.0-38.9, adult
CPT/HCPCS: 52352; 52332; 36415; 74420; 80053; 82365; 85027; 88300; 96374; C1769; C2617; C9113; G0378; G0379; J0690; J1100; J2250; J2405; J2704; J3010; J7030; J7120; Q9966

== ENCOUNTER 2023-11-11 08:34 | Outpatient (CLI) | payer OTHER, SELFPAY ==
[2023-11-11 09:14] LABS: Hemoglobin A1C 5.4 % (<5.7)
[2023-11-11 09:40] LABS: Cholesterol 199 mg/dL (0-200); HDL Direct 56 mg/dL (40-60); LDL Cholesterol Calculated 132 mg/dL (<130); Triglycerides 57 mg/dL (0-150)
[2023-11-11 09:57] LABS: Thyroid Stimulating Hormone Reflex 1.38 u/IU/mL (0.36-3.74)
== END 2023-11-11 08:35 | disposition home or self-care (01) ==
LOC: CHSLAB 08:37
PROVIDERS: PCP Family Medicine; Visit Provider Family Medicine
DX: E03.9 Hypothyroidism, unspecified (principal); I10 Essential (primary) hypertension; E11.9 Type 2 diabetes mellitus without complications
CPT/HCPCS: 36415; 80061; 83036; 84443

== ENCOUNTER 2023-11-12 06:43 | Outpatient (CLI) | payer OTHER, SELFPAY ==
--- NOTE | ~2023-11-12 | XR_ITS ---
Supine and upright views of the abdomen Clinical history: Kidney stone Findings: Bowel gas pattern is nonspecific. No evidence for obstruction or free air. Suspected 6 mm r ight lower pole renal stone. Osseous structures are intact. Impression: Suspected 6 mm right lower pole renal stone. Reviewed, dictated and finalized at location . Impression: Suspected 6 mm right lower pole renal stone.
== END 2023-11-12 06:44 | disposition home or self-care (01) ==
LOC: ANHIMG 06:45
PROVIDERS: PCP Family Medicine; Visit Provider Urology
DX: N20.0 Calculus of kidney (principal)
CPT/HCPCS: 74018

== ENCOUNTER 2023-12-15 16:42 | Outpatient (CLI) | payer OTHER, SELFPAY ==
--- NOTE | 2023-12-15 16:48 | ECG_ITS ---
Test Date: 2023-12-15 16:55:01 Measurements Intervals [place] Rate: 74 P: 46 SD: 154 QRS: 74 QRSD: 97 T: 20 QT: 395 QTc: 438 Interpretive Statements SINUS RHYTHM No previous ECG available for comparison Electronically Signed On 12-16-2023 11:32:50 CDT by Radha Fonseca M.D.
[2023-12-15 17:32] LABS: Partial Thromboplastin Time 25.7 Sec (23.9-30.70); Prothrombin Time 11.1 Seconds (9.50-12.1)
== END 2023-12-15 16:43 | disposition home or self-care (01) ==
LOC: CHSCARD 16:43
PROVIDERS: PCP Family Medicine; Visit Provider Urology
DX: Z01.818 Encounter for other preprocedural examination (principal); I10 Essential (primary) hypertension; N20.0 Calculus of kidney
CPT/HCPCS: 36415; 85610; 85730; 87086; 93005

== ENCOUNTER 2023-12-25 00:13 | Day surgery (SDC) | payer OTHER, SELFPAY ==
[2023-12-15 08:58] VITALS: BMI 36.8
--- NOTE | 2023-12-15 09:05 | PC.NURSE ---
Report to the Outpatient Waiting Room, entrance under the green pavilion located off [facility], at time 0630_ on date _12/25/23_. Planned Procedure Time: 0830_. Time changes happen often and if your time is changed the preop area will call you the afternoon before. - You and your visitor will be asked to self-screen and do not enter if you have any COVID symptoms. - A mask is optional within the hospital at this time. Patients may have clear liquids (water, carbonated beverages, clear teas, apple juice) until 3 hours prior to surgery with a maximum of 20 ounces. - No food from midnight until time of surgery - Infants may have breast milk until 4 hours before surgery, formula 6 hours prior to surgery. - Children will be allowed to drink immediately following surgery. If applicable, please bring a bottle or sippy cup to assist with drinking. Juice, water, soda, and popsicles are readily available. For infants on formula, please bring formula the day of surgery. Pacifiers are allowed. Take the following medications with a SIP of water the morning of surgery: ___LOSARTAN DO NOT STOP ANY OF YOUR OTHER PRESCRIPTION MEDICATIONS PRIOR TO SURGERY ?EXCEPT THE FOLLOWING Medications to discontinue per physician NONE Date to take last dose Please no make-up, nail gabonese, hairspray, perfume, deodorant, or body powder the day of surgery. No jewelry (including any body piercings) or valuables the day of surgery, leave them at home. Please take a shower or bath the night before, or the morning of, surgery with an antibacterial soap. Wear comfortable, loose fitting clothing. Children are encouraged to wear pajamas. - Jewelry must be removed prior to entering the operating room. Rings and piercings that are not removed may be cut off. - The hospital will not accept responsibility for valuables. - Please leave all valuables, including medications, at home the day of surgery. If you are going home after surgery, a licensed mechanic welder truck driver must drive you home. - NO public transportation without another adult if you receive anesthesia. - We recommend that an adult stay with you for 24 hours following discharge. - We also recommend that you do not drive, make important decision, drink alcoholic beverages, or take any drugs that were not prescribed by your health care provider for at least 24 hours after your discharge time. For Pediatric surgeries, we recommend two adults accompany the child home. Follow any additional instructions given to you from your surgeon. If you or anyone in your household have experienced Covid symptoms in the past week, please notify your surgeon or the nurse liaison at the phone number below for possible testing. Telephone instructions given to _PATIENT_and asked if any additional questions and then verbalized understanding. Patient advised to call surgeon office or pre surgery nurse liaison [phone] if any additional questions.
--- NOTE | 2023-12-24 14:11 | P.PNAN_ITS ---
Anes - Initial Pre Proc Eval Procedure: Operation Date: 12/25/23 08:30 Proposed Procedures p Right Extracorporeal Shock Wave Lithotripsy - Juan Ocasio MD Date/Time: 12/24/23 14:11 Surgeon: Juan Ocasio MD Pre Op Diagnosis: Right Renal Calculus Patient Data Age: 48 Gender: M Height: 1.8 m Weight: 120 kg Allergies Allergy/AdvReac Type Severity Reaction Status Date / Time No Known Allergies Allergy Verified 12/25/23 07:32 Home Medications Medication Instructions Recorded Confirmed Type hydrochlorothiazide 12.5 mg capsule 12.5 mg PO DAILY #90 caps 12/22/23 12/25/23 Rx losartan 25 mg tablet 25 mg PO DAILY #90 tabs 12/22/23 12/25/23 Rx Patient hx anesthesia problems: none Family hx anesthesia problems: none Results Review: All pre-operative results and documents have been reviewed as part of the pre- operative evaluation. [facility] Past Medical History Medical History (Updated 12/25/23 @ 07:56 by Drew Urena DO) Hypertension Kidney stones aug 2023 ERIS (obstructive sleep apnea) Surgical History Surgical History (Updated 11/11/23 @ 08:03 by Cheryl Leblanc) H/O vasectomy 2005 [place] teeth removed all 4 ( ) Family History Family History Mother Heart failure Diabetes mellitus Afib Grandparent Cerebrovascular accident Social History Social History Smoking status: Never smoker Alcohol intake: never Substance use: never Substance use type: does not use Do You Feel Safe in your Home?: Yes Lack of Transportation: No Lack of Food: Never True Current Housing: I Have Housing Concerned About Future Housing: No Difficulty Paying Gas/Electric Bills: No Difficulty Paying for Meds: No Currently Unemployed: No Education: Associate Degree Difficulty w/ Childcare or Family Care: No Living arrangements: with family Spiritual care concerns: No Anes - Eval Final PreProcedure Day of Procedure 12/24/23 14:11 Patient weight: obese Heart: regular rate and rhythm Lungs: clear to auscultation Airway: Mallampati scale class II Neurological: alert and oriented Last oral intake: >/= 8 hours ASA classification: III Emergent: no Anesthetic plan: proceed Anesthesia type and monitoring: general LMA and standard monitoring Results Review: All pre-operative results and documents have been reviewed as part of the pre- operative evaluation. Informed Consent: The patient's anesthetic plan and its attendant risks and benefits were discussed with the patient/family/POA. Questions were solicited and answers provided to the satisfaction of the patient/family/POA.
[2023-12-25] VITALS (7 sets, daily range): BP systolic 123–147; BP diastolic 84–96; PULSE 45–61; RESP 12–16; TEMP 36.2–36.6; O2SAT 97–100; BMI 36.1
--- NOTE | ~2023-12-25 | XR_ITS ---
EXAMINATION: XR abdomen/kub 1V DATE: 12/25/2023 06:50 INDICATION: Kidney stone. TECHNIQUE: A supine view of the abdomen on 3 radiographs was obtained. COMPARISON: CT abdomen and pelvis 09/01/2023 FINDINGS: There are no dilated loops of bowel. There is a 5 mm stone in right kidney lower pole. IMPRESSION: 1. 5 mm right kidney stone. Reviewed, dictated and finalized at location A. IMPRESSION: 1. 5 mm right kidney stone.
--- NOTE | 2023-12-25 07:22 | WPDHPUPDATE1 ---
History and Physical Update Update Date/Time: 12/25/23 07:22 History and Physical has been reviewed, including an updated exam of the patient. There are NO changes in the patient's condition. Risks, benefits, and alternatives have been discussed and questions answered. Patient agrees to proceed with procedure. Proceed with right renal eswl
[2023-12-25] MEDS: ceFAZolin 2 GM/D5W 50 ML 2 GM/50 ML BAG IVPB (08:26)
--- NOTE | 2023-12-25 08:59 | W.PM.PROC2 ---
Procedure Note - Detailed Date of Procedure 12/25/23 Pre-op Diagnosis Right Renal Calculus Post-op Diagnosis Same Procedure Performed Lithotripsy of right renal calculus 6-7 mm Surgeon Juan Ocasio MD Anesthesia General Description of Procedure The patient was taken to the operative suite correctly identified. Once anesthesia was obtained the stone was localized in both planes. Two thousand five hundred shocks were given the stone. There appeared to be good fragmentation. Patient tolerated procedure well without any complications and was taken recovery stable condition. This completes dictation. Please send a copy of op note to my office. Drains No Packing No Pathology None sent Complications No immediate complications Condition Stable Disposition PACU
[2023-12-25] MEDS: LACTATED RINGERS 1,000 ML 30 ML IV CONT ×2 (09:10→09:40)
--- NOTE | 2024-01-29 10:36 | P.HP_ITS ---
H&P: HPI History of Present Illness Date/Time: 01/29/24 10:36 Chief Complaint: Right renal calculus Narrative: 48 yr old male with 6-7 mm right lower pole stone. Presents for ESWL of right renal calculus on 12/25/23 Review of Systems Review of Systems: All systems reviewed & are unremarkable except as noted in HPI and below PMFSH Past Medical History Medical History Hypertension Kidney stones aug 2023 ERIS (obstructive sleep apnea) Surgical History Surgical History H/O vasectomy 2004 [place] teeth removed all 4 ( ) Family History Family History Mother Heart failure Diabetes mellitus Afib Grandparent Cerebrovascular accident Social History Social History Smoking status: Never smoker Alcohol intake: never Substance use: never Substance use type: does not use Do You Feel Safe in your Home?: Yes Lack of Transportation: No Lack of Food: Never True Current Housing: I Have Housing Concerned About Future Housing: No Difficulty Paying Gas/Electric Bills: No Difficulty Paying for Meds: No Currently Unemployed: No Education: Associate Degree Difficulty w/ Childcare or Family Care: No Living arrangements: with family Spiritual care concerns: No Meds Home Medications and Allergies Home Medications Medication Instructions Recorded Confirmed Type sulfamethoxazole 800 1 tablet PO Q12H #6 tabs 12/25/23 Rx mg-trimethoprim 160 mg tablet (Bactrim DS) tramadol 50 mg tablet 50 mg PO Q6H PRN pain #20 tabs 12/25/23 Rx prednisone 10 mg tablets in a dose 10 mg PO DIRECTED #48 ea 12/30/23 Rx pack hydrochlorothiazide 12.5 mg capsule 12.5 mg PO DAILY #90 caps 01/21/24 Rx losartan 25 mg tablet 25 mg PO DAILY #90 tabs 01/21/24 Rx Allergies Allergy/AdvReac Type Severity Reaction Status Date / Time No Known Allergies Allergy Verified 12/25/23 07:32 Exam Const: General: cooperative and comfortable Resp: Effort & Inspection: normal respiratory effort Cardio: Rate: regular rate Rhythm: regular rhythm Assessment and Plan Assessment and plan (1) Renal calculus: Code(s): N20.0 - Calculus of kidney Status: Acute Assessment and Plan: Proceed with ESWL of right renal calculus on 12/25/23
== END 2023-12-25 10:43 | disposition home or self-care (01) ==
PROVIDERS: PCP Family Medicine; Visit Provider Urology
PROC: (CPT 50590; principal; 2023-12-25 08:30)
DX: N20.0 Calculus of kidney (principal); I10 Essential (primary) hypertension; G47.33 Obstructive sleep apnea (adult) (pediatric); E66.9 Obesity, unspecified; Z68.36 Body mass index [BMI] 36.0-36.9, adult; Z79.891 Long term (current) use of opiate analgesic; Z79.52 Long term (current) use of systemic steroids; Z98.890 Other specified postprocedural states; Z82.49 Family history of ischemic heart disease and other diseases of the circulatory system
CPT/HCPCS: 50590; 74018; J0690; J1100; J2405; J2704; J3010; J7120

== ENCOUNTER 2024-01-11 06:40 | Outpatient (CLI) | payer OTHER, SELFPAY ==
--- NOTE | ~2024-01-11 | XR_ITS ---
Supine and upright views of the abdomen Clinical history: Left ureteral stone COMPARISON: 12/25/2023 Findings: Bowel gas pattern is nonspecific. No evidence for obstruction or free air. Possible small r ight lower pole renal stone. Osseous structures are intact. Impression: Possible small right lower pole renal stone. Reviewed, dictated and finalized at location . Impression: Possible small right lower pole renal stone.
== END 2024-01-11 06:41 | disposition home or self-care (01) ==
PROVIDERS: PCP Family Medicine; Visit Provider Urology
DX: N20.1 Calculus of ureter (principal)
CPT/HCPCS: 74018

== ENCOUNTER 2025-02-03 10:13 | Outpatient (CLI) | payer BC, SELFPAY ==
--- NOTE | ~2025-02-03 | XR_ITS ---
XR abdomen/kub 1V 02/03/2025 10:31 INDICATION: Lithotripsy therapy TECHNIQUE: KUB COMPARISON: 01/11/2024 FINDINGS: Bowel gas pattern is normal. There is no evidence of free air, mass, organomegaly, ascites or obstruction. There is a punctate left renal stone at the lower pole. The bones appear intact. IMPRESSION: 1: Left nephrolithiasis. Reviewed, dictated and finalized at location A. IMPRESSION: 1: Left nephrolithiasis.
== END 2025-02-03 10:14 | disposition home or self-care (01) ==
PROVIDERS: PCP Family Medicine; Visit Provider Urology
DX: N20.0 Calculus of kidney (principal)
CPT/HCPCS: 74018